=== PATIENT | male | born 1945 | race Caucasian/White ===

== ENCOUNTER 2021-01-27 | Emergency (ER) | payer MEDICARE, OTHER ==
[2021-01-27] MEDS ORDERED: PROAIR HFA108 MCG/AC IN (19:11)
[2021-01-27] MEDS ORDERED: ZITHROMAX500 MG PO (19:11)
[2021-01-27] MEDS ORDERED: TESSALON PERLE100 MG PO (19:11)
[2021-01-27] MEDS ORDERED: MEDDOSEPAK PO (19:11)
== END 2021-01-27 19:28 | disposition home or self-care (01) ==
DX: U07.1 COVID-19 (principal)